=== PATIENT | female | born 1995 ===

== ENCOUNTER 2022-12-08 08:50 | Emergency (ER) | payer OTHER, BC ==
[2022-12-08] MEDS ORDERED: Morphine 4 MG/ML Syringe IVPUSH ONE (08:52)
[2022-12-08] MEDS ORDERED: Ondansetron 4 MG/2 ML SDV IVPUSH ONE (08:52)
[2022-12-08] MEDS ORDERED: Sodium Chloride 0.9% 1,000 ML IV ONE ×2 (08:52→09:10)
== END 2022-12-08 11:20 | disposition home or self-care (01) ==
LOC: EDBD → MERGE 08:50 → MW.ED 08:50
DX: M25.521 Pain in right elbow (principal); M25.531 Pain in right wrist; M79.661 Pain in right lower leg; Z79.899 Other long term (current) drug therapy; V49.40XA Driver injured in collision with unspecified motor vehicles in traffic accident, initial encounter; Y92.410 Unspecified street and highway as the place of occurrence of the external cause
CPT/HCPCS: 70450; 70450-26; 71250; 71250-26; 72125; 72125-26; 72128; 72128-26; 72131; 72131-26; 73070-26-RT; 73070-RT; 73110-26-RT; 73110-RT; 73590-26-RT; 73590-RT; 74176; 74176-26; 93005; 99283; 99285